=== PATIENT | female | born 1965 | race Caucasian/White ===

== ENCOUNTER 2019-12-09 00:44 | Outpatient (CLI) | payer OTHER, SELFPAY ==
[2019-12-09 18:41] LABS: SARS-CoV-2 RNA PCR Negative
== END 2019-12-09 00:45 | disposition home or self-care (01) ==
LOC: ANHCOVIDDT 00:44
PROVIDERS: PCP Family Medicine; Visit Provider Internal Medicine Gastroenterology
DX: Z01.812 Encounter for preprocedural laboratory examination (principal); Z11.59 Encounter for screening for other viral diseases
CPT/HCPCS: 87635; C9803; U0003

== ENCOUNTER 2019-12-11 05:40 | Day surgery (SDC) | payer OTHER, SELFPAY ==
[2019-12-05 15:22] VITALS: BMI 50.8
[2019-12-11 06:35] VITALS: BP 176/83; PULSE 76; RESP 18; TEMP 36.3; O2SAT 98; BMI 53.7
[2019-12-11] MEDS: LACTATED RINGERS 1,000 ML 150 ML IV CONT (06:53)
--- NOTE | 2019-12-11 07:19 | WPDANESEPPF ---
Anes - Initial Pre Proc Eval Procedure: Operation Date: 12/11/19 07:30 Proposed Procedures p Screening Colonoscopy - Brett Miranda MD Date/Time: 12/11/19 07:19 Surgeon: Brett Miranda MD Pre Op Diagnosis: neoplasm screening Patient Data Age: 53 Gender: F Height: 5 ft 6 in Weight: 151 kg Last Vital Signs Temp 97.3 F L 12/11/19 06:35 Pulse 76 12/11/19 06:35 Resp 18 12/11/19 06:35 BP 176/83 H 12/11/19 06:35 Pulse Ox 98 12/11/19 06:35 Allergies Allergy/AdvReac Type Severity Reaction Status Date / Time amoxicillin Allergy Unknown Skin Verified 12/11/19 06:31 Reaction Penicillins Allergy Unknown Skin Verified 12/11/19 06:31 Reaction AMOXICILLIN TRIHYDRATE Allergy Intermediate RASH Uncoded 12/11/19 06:31 POTASSIUM CLAVULANATE Allergy Intermediate RASH Uncoded 12/11/19 06:31 Home Medications Medication Instructions Recorded Confirmed Type levothyroxine 150 mcg tablet 150 mcg PO DAILY #90 tablet 05/27/19 12/11/19 Rx fluoxetine 20 mg capsule 20 mg PO DAILY #90 cap 06/17/19 12/11/19 Rx aspirin 81 mg tablet,delayed 81 mg PO DAILY 11/27/19 12/11/19 History release loratadine 10 mg tablet 20 mg PO DAILY tablet 11/27/19 12/11/19 History metoprolol succinate 50 mg 50 mg PO DAILY 11/27/19 12/11/19 History tablet,extended release 24 hr omeprazole 40 mg capsule,delayed 40 mg PO DAILY #30 cap 11/27/19 12/11/19 Rx release hydrochlorothiazide 25 mg tablet 25 mg PO DAILY #90 tablet 11/28/19 12/11/19 Rx naproxen 500 mg tablet 500 mg PO BID #180 tablet 11/28/19 12/11/19 Rx Patient hx anesthesia problems: none Family hx anesthesia problems: none PMFSH Past Medical History Medical History (Updated 12/11/19 @ 07:12 by Chet Zamarripa MD) Essential (primary) hypertension Hypothyroid Super obesity Social History Social History Smoking status: Former smoker Smoking end date: 05/29/98 Alcohol intake: current Anes - Eval Final PreProcedure Day of Procedure 12/11/19 07:19 Patient weight: super morbidly obese Heart: regular rate and rhythm Lungs: clear to auscultation Airway: Mallampati scale class II Neurological: alert and oriented Last oral intake: >/= 8 hours ASA classification: IV Emergent: no Anesthetic plan: proceed Anesthesia type and monitoring: general GIVS and standard monitoring Informed Consent: The patient's anesthetic plan and its attendant risks and benefits were discussed with the patient/family/POA. Questions were solicited and answers provided to the satisfaction of the patient/family/POA.
--- NOTE | 2019-12-11 07:24 | WPDGICN ---
Assessment and Plan Assessment and plan (1) Encounter for screening for colorectal malignant neoplasm: Code(s): Z12.11 - Encounter for screening for malignant neoplasm of colon; Z12.12 - Encounter for screening for malignant neoplasm of rectum Status: Acute Assessment and Plan: Screening colonoscopy advised. Patient is now 52. Has never had a screening exam. Further recommendations will be given after colonoscopy. (2) Rectal bleed: Code(s): K62.5 - Hemorrhage of anus and rectum Status: Acute Assessment and Plan: Rectal bleeding likely from hemorrhoids. Plan is to evaluate the time of colonoscopy. High-fiber diet advised. GI Consult Note Consult date/time: 12/11/19 07:24 HPI: Steffi Rodas is a 53 year old female seen in evaluation at the request of Dr Justin Hernandez.Patient presents for neoplasia screening. she has never had a screening colonoscopy. Family history is noncontributory. There is no reported history of colon or rectal disease. Patient reports a 6 week history of loose stools socially with fatigue. She attributes this to the recent changes of working home associated with viral epidemic. Patient has noticed intermittent bright red blood per rectum during this interval of time. She denies any weight loss. She denies any abdominal pain. Review of Systems Review of Systems: All systems reviewed & are unremarkable except as noted in HPI and below PMFSH Past Medical History Medical History Essential (primary) hypertension Hypothyroid Super obesity Family History Family History Mother Diabetes mellitus Family history of cardiovascular disease Hypertension Patient's mother is , Onset Age: 61 Cerebrovascular accident Father Family history of primary malignant neoplasm of liver Family history of arthritis Sibling Family history of schizophrenia Hypertension Grandparent Hypertension Family history of cardiovascular disease Social History Social History Smoking status: Former smoker Smoking end date: 05/29/98 Alcohol intake: current Meds Home Medications and Allergies Home Medications Medication Instructions Recorded Confirmed Type levothyroxine 150 mcg tablet 150 mcg PO DAILY #90 tablet 05/27/19 12/11/19 Rx fluoxetine 20 mg capsule 20 mg PO DAILY #90 cap 06/17/19 12/11/19 Rx aspirin 81 mg tablet,delayed 81 mg PO DAILY 11/27/19 12/11/19 History release loratadine 10 mg tablet 20 mg PO DAILY tablet 11/27/19 12/11/19 History metoprolol succinate 50 mg 50 mg PO DAILY 11/27/19 12/11/19 History tablet,extended release 24 hr omeprazole 40 mg capsule,delayed 40 mg PO DAILY #30 cap 11/27/19 12/11/19 Rx release hydrochlorothiazide 25 mg tablet 25 mg PO DAILY #90 tablet 11/28/19 12/11/19 Rx naproxen 500 mg tablet 500 mg PO BID #180 tablet 11/28/19 12/11/19 Rx Allergies Allergy/AdvReac Type Severity Reaction Status Date / Time amoxicillin Allergy Unknown Skin Verified 12/11/19 06:31 Reaction Penicillins Allergy Unknown Skin Verified 12/11/19 06:31 Reaction AMOXICILLIN TRIHYDRATE Allergy Intermediate RASH Uncoded 12/11/19 06:31 POTASSIUM CLAVULANATE Allergy Intermediate RASH Uncoded 12/11/19 06:31 Vital Signs Vital Signs - 24 hr 12/11/19 06:35 Temperature 97.3 F L Pulse Rate 76 Respiratory Rate 18 Blood Pressure 176/83 H Pulse Oximetry 98 Exam Narrative: Exam Narrative: Physical exam reveals patient to be alert. Vital signs are stable. HEENT exam unremarkable. Lungs are clear to auscultation and percussion. Heart is without murmur or extra sounds. Abdominal exam is somewhat obese. Bowel sounds are present soft nontender with no hepatosplenomegaly. Digital external rectal exam is normal.
[2019-12-11 07:47] VITALS: BP 148/85; PULSE 73; RESP 16; O2SAT 96
[2019-12-11 07:57] VITALS: BP 148/81; PULSE 66; RESP 16; O2SAT 96
[2019-12-11 08:03] VITALS: BP 169/88; PULSE 61; RESP 16; O2SAT 97
== END 2019-12-11 08:20 | disposition home or self-care (01) ==
PROVIDERS: PCP Family Medicine; Visit Provider Internal Medicine Gastroenterology
PROC: 0DJD8ZZ Inspection of Lower Intestinal Tract, Via Natural or Artificial Opening Endoscopic (ICD-10-PCS; CPT 45378; principal; 2019-12-11 07:30)
DX: Z12.11 Encounter for screening for malignant neoplasm of colon (principal); K57.30 Diverticulosis of large intestine without perforation or abscess without bleeding; K64.8 Other hemorrhoids; K62.5 Hemorrhage of anus and rectum; I10 Essential (primary) hypertension; E03.9 Hypothyroidism, unspecified; E66.01 Morbid (severe) obesity due to excess calories; Z68.43 Body mass index [BMI] 50.0-59.9, adult; Z79.82 Long term (current) use of aspirin
CPT/HCPCS: 45378; J2704; J7120

== ENCOUNTER 2020-09-14 08:02 | Outpatient (CLI) | payer OTHER, SELFPAY | END 2020-09-14 08:03 | disposition home or self-care (01) | LOC: ANHCOVIDVC 08:03 | PROVIDERS: PCP Family Medicine | DX: Z23 Encounter for immunization (principal) | CPT/HCPCS: 0001A; 91300 ==

== ENCOUNTER 2020-10-05 07:59 | Outpatient (CLI) | payer OTHER, SELFPAY | END 2020-10-05 08:00 | disposition home or self-care (01) | LOC: ANHCOVIDVC 08:00 | PROVIDERS: PCP Family Medicine | DX: Z23 Encounter for immunization (principal) | CPT/HCPCS: 0002A; 91300 ==

== ENCOUNTER 2021-01-23 10:36 | Outpatient (CLI) | payer OTHER, SELFPAY ==
--- NOTE | ~2021-01-23 | XR_ITS ---
XR knee LT 3V DATE: 01/23/2021 11:00 INDICATION: Left knee pain TECHNIQUE: [place], AP, lateral views COMPARISON: None FINDINGS: There is tricompartment osteoarthritis including prominent particular spurring of the knight lofemoral joint and to a minimal extent lower quadrant. There is severe narrowing of the medial jumana rtment joint space and mild particular spurring. No fracture or dislocation or joint effusion. No radiopaque intra-articular loose body or chondrocalc inosis. No periosteal reaction or bone destruction. IMPRESSION: Tricompartment osteoarthritis, most prominent at the medial and patellofemoral compartmen ts Reviewed, dictated and finalized at location A. IMPRESSION: Tricompartment osteoarthritis, most prominent at the medial and pat ellofemoral compartments
--- NOTE | ~2021-01-23 | MR_ITS ---
EXAMINATION: MR lumbar spine wo con EXAM DATE: 01/23/2021 11:48 INDICATION: M48.062 - Spinal stenosis, lumbar region with neurogenic claudication chronic lbp/left le g pain x yrs, no trauma, no ca. TECHNIQUE: Multi-sequential, multiplanar MR images of the lumbar spine were obtained without contrast . Sagittal T1, T2, T2 fat saturation images. Axial T2 weighted images. Comparison is made to prior examination from 10/03/2011. FINDINGS: There is 3 mm anterolisthesis L3 on L4. Mild to moderate disc disease L4-5. The conus medul aaron terminates at the T12-L1 level and has normal signal intensity and morphology. There are no angulo spicious marrow signal abnormalities. Paraspinal soft tissue is unremarkable. Level by level evaluation: T12-L1: Disc does not extend beyond the endplate margin. Facet arthropathy: Mild. Neural foraminal stenosis: No stenosis. Central canal stenosis: No stenosis. L1-L2: Disc does not extend beyond the endplate margin. Facet arthropathy: Mild. Neural foraminal stenosis: No stenosis. Central canal stenosis: No stenosis. L2-L3: There is a mild diffuse disc bulge. Facet arthropathy: Mild. Neural foraminal stenosis: No stenosis. Central canal stenosis: No stenosis. L3-L4: There is a mild to moderate diffuse disc bulge. Facet arthropathy: Moderate to severe . Ligamentum flavum enlargement. Neural foraminal stenosis: Mild to moderate bilateral. Central canal stenosis: Moderate. L4-L5: There is a mild to moderate diffuse disc bulge. Facet arthropathy: Moderate to severe . Ligamentum flavum enlargement. Neural foraminal stenosis: Moderate to severe bilateral. Central canal stenosis: Moderate. L5-S1: Disc does not extend beyond the endplate margin. Facet arthropathy: Mild. Neural foraminal stenosis: No stenosis. Central canal stenosis: No stenosis. There is been progression spondylosis compared to 2012. IMPRESSION: 1. L4-5 moderate to severe bilateral neural foraminal stenosis. 2. Advanced arthropathy L3-for L4-5. Reviewed, dictated and finalized at location B.
--- NOTE | ~2021-01-23 | XR_ITS ---
XR knee RT 3V DATE: 01/23/2021 11:00 INDICATION: Right knee pain TECHNIQUE: [employer], AP and lateral views COMPARISON: None FINDINGS: There is tricompartment osteoarthritis, most prominent at the medial and patellofemoral com partments, particularly prominent loss of medial compartment joint space height. No fracture or dislocation or joint effusion. No radiopaque intra-articular loose body or chondrocalc inosis. No periosteal reaction or bone destruction. IMPRESSION: Tricompartment osteoarthritis, particularly prominent at the medial and patellofemoral co mpartments Reviewed, dictated and finalized at location A. IMPRESSION: Tricompartment osteoarthritis, particularly prominent at the medial and patellofemoral compartments
== END 2021-01-23 10:37 ==
LOC: MICIMG 10:36
PROVIDERS: PCP Family Medicine; Visit Provider Family Medicine
DX: M25.561 Pain in right knee (principal); M25.562 Pain in left knee; M48.062 Spinal stenosis, lumbar region with neurogenic claudication
CPT/HCPCS: 72148; 73562

== ENCOUNTER → 2021-12-13 08:30 | Outpatient (CLI) | payer OTHER, SELFPAY ==
--- NOTE | ~2021-12-13 | MMUS_ITS ---
EXAMINATION: MM diagnostic salo BI w jonathan, US breast RT limited HISTORY: Right breast pain TECHNIQUE: Additional 3-D tomosynthesis images of the breasts were performed and synthetic 2-D images were generated. CAD analysis was submitted and interpreted. High resolution Limited right breast ult rasound was performed. COMPARISON: 01/19/2017 BREAST PARENCHYMAL COMPOSITION: The breasts are heterogenously dense, which may obscure small masses. FINDINGS: MAMMOGRAPHIC FINDINGS: There are bilateral breast masses which have decreased in size compared with prior studies. There are no new masses, calcifications or areas of architectural distortion in either breast to suggest malig zina. ULTRASOUND: Limited right breast ultrasound: There are multiple cysts of the right breast. At 10:00, 9 cm from th e nipple there is an oval hypoechoic mass with some enhanced through transmission measuring 9 mm maxi mum dimension, likely a complicated cyst. IMPRESSION: 1. Probable benign right breast mass at 10:00, 9 cm from the nipple. 2. Recommend 6 month follow-up limited right breast ultrasound BI-RADS category 3, probably benign findings. Reviewed, dictated and finalized at location A. IMPRESSION: 1. Probable benign right breast mass at 10:00, 9 cm from the nipple. 2. Recommend 6 month follow-up limited right breast ultrasound BI-RADS category 3, probably benign findings.
== END ==
PROVIDERS: PCP Family Medicine; Visit Provider Family Medicine
DX: N64.4 Mastodynia (principal)
CPT/HCPCS: 76642; 77062; 77066; G0279

== ENCOUNTER 2022-09-08 19:53 | Emergency (ER) | payer OTHER, SELFPAY ==
--- NOTE | ~2022-09-08 | XR_ITS ---
Supine and upright views of the abdomen Clinical history: Distal left ureteral stone Findings: Bowel gas pattern is nonspecific. No evidence for obstruction or free air. A 4 mm stone in the left pelvis is consistent with distal left ureteral stone. Osseous structures are intact. Impression: 4 mm distal left ureteral stone. Reviewed, dictated and finalized at [facility]. Impression: 4 mm distal left ureteral stone.
--- NOTE | ~2022-09-08 | CT_ITS ---
Non-contrast CT scan of the Abdomen and Pelvis Clinical indication: Left flank pain Technique: 2.5 mm axial scans were obtained through the abdomen and pelvis without intravenous or or al contrast. Dose reduction technique was used on this scan by utilizing automated exposure control a nd iterative reconstruction technique. The dose-length product (DLP) was 1481.83 mGy-cm. Findings: Images through the lung bases reveal no abnormalities. There is a 5 mm stone in the distal left ureter (axial image 145), with mild left hydroureteronephros is to this level. Additional small nonobstructing left renal stones are present. No right renal stone or right ureteral stone. No right hydronephrosis. There is probable diffuse fatty infiltration of liver. Cholecystectomy clips are present. The spleen, pancreas, and adrenals appear normal. There are atherosclerotic calcifications of the aorta. There is no evidence of bowel obstruction. Images through the pelvis were performed. There is no evidence of ascites or lymphadenopathy. Urinary bladder unremarkable. No pelvic mass seen. Impression: 5 mm distal left ureteral stone with mild left hydroureteronephrosis to this level. Additional small nonobstructing left renal stone. Diffuse fatty infiltration of liver. Reviewed, dictated and finalized at location . Impression: 5 mm distal left ureteral stone with mild left hydroureteronephrosis to this le bertin. Additional small nonobstructing left renal stone. Diffuse fatty infiltration of liver.
[2022-09-08 20:24] VITALS: BP 186/95; PULSE 70; RESP 18; TEMP 36.8; O2SAT 97
[2022-09-08 20:55] LABS: Basophils Absolute Auto 0.1 K/mm3 (0.0-0.1); Basophils Percent Auto 0.8 % (0.2-1.2); Eosinophils Absolute Auto 0.2 K/mm3 (0-0.3); Eosinophils Percent Auto 1.9 % (0-4.4); Hematocrit 37.5 % (37.0-47.0); Hemoglobin 12.5 g/dL (12.0-15.0); Immature Granulocyte Absolute 0.03 K/mm3 (0.00-0.031); Immature Granulocyte Percent A 0.3 % (0-0.5); Lymphocytes Absolute Auto 1.46 K/mm3 (0.9-3.2); Lymphocytes Percent Auto 16.6 % (18.3-44.2); Mean Corpuscular HGB Conc 33.3 g/dl (32-36); Mean Corpuscular Hemoglobin 28.7 pg (26-34); Mean Platelet Volume 10.8 fl (7.4-10.4); Monocytes Absolute Auto 0.8 K/mm3 (0.1-0.6); Monocytes Percent Auto 8.9 % (2.6-8.5); Neutrophils Absolute Auto 6.3 K/mm3 (1.3-6.7); Neutrophils Percent Auto 71.5 % (45.5-73.1); Platelet Count Result 316 k/mm3 (150-375); Red Blood Count 4.36 M/mm3 (4.2-5.4); Red Cell Distribution Width 13.1 % (11.5-14.5); White Blood Count 8.8 K/mm3 (4.5-10.0)
[2022-09-08 21:02] LABS: Appearance Urine Cloudy (Clear); Bacteria Urine 3+ /hpf; Bilirubin Urine Negative (Negative); Blood Urine Negative (Negative); Color Urine Yellow (Yellow); Glucose Urine UA Negative (Negative); Ketones Urine Negative (Negative); Leukocyte Esterase Ur Trace LEU/UL (Negative); Nitrate Urine Negative (Negative); Non Pathogenic Casts 0-2; Protein Urine Negative (Negative); RBC Urine 0-2 /hpf (0-2); Squamous Epithelial Cell Urine Moderate /hpf (Few); Urobilinogen Urine 0.2 mg/dL (<2.0); pH Urine 5.5 (5.0-9.0)
[2022-09-08 21:08] LABS: Alanine Aminotransferase 24 U/L (6-35); Albumin Level 4.5 g/dL (3.5-5.1); Alkaline Phosphatase 106 U/L (38-126); Anion Gap 10 mmol/L (8-16); Aspartate Amino Transferase 26 U/L (14-36); Bilirubin,Total 1.1 mg/dL (0.2-1.3); Blood Urea Nitrogen 20 mg/dL (7-17); Calcium 9.6 mg/dL (8.4-10.2); Carbon Dioxide 26 mmol/L (22-30); Chloride 100 mmol/L (98-107); Estimated CRCL calculation 85 ml/min; Estimated Glomerular Filt Rate 58; Glucose 118 mg/dL (65-110); Potassium 3.8 mmol/L (3.4-5.0); Sodium 136 mmol/L (137-145)
[2022-09-08 21:14] LABS: Add Urine Microscopic? YES
--- NOTE | 2022-09-09 00:38 | ED.FEMALEGU ---
HPI - Female Genitourinary General Chief complaint: Urogenital-Female Stated complaint: ?KIDNEY STONE Time Seen by Provider: 09/08/22 23:43 Source: patient Mode of arrival: ambulatory Limitations: no limitations History of Present Illness HPI Narrative: Patient is a 56-year-old female who presents to the ED with report of left flank pain. Patient reported having an episode of left flank pain on Monday, which resolved on its own. Today, the pain has been more severe, intermittent. Occasionally radiates around to her left lower abdomen. Patient reports a previous history of kidney stones around 5 years ago, which felt similar. At that time, she had an infected stone that required ureteral stent placement. Patient does not currently follow with urologist. She does report nausea, but denies vomiting. Denies dysuria, hematuria, urinary frequency, fevers. Patient took Tylenol around 3 PM today. Related Data Home Medications Medication Instructions Recorded Confirmed aspirin 81 mg tablet,delayed 81 mg PO DAILY 11/27/19 05/02/22 release (Adult Aspirin Regimen) loratadine 10 mg tablet (Claritin) 20 mg PO DAILY 11/27/19 05/02/22 Allergies Allergy/AdvReac Type Severity Reaction Status Date / Time amoxicillin Allergy Unknown Skin Verified 05/02/22 13:19 Reaction Penicillins Allergy Unknown Skin Verified 05/02/22 13:19 Reaction AMOXICILLIN TRIHYDRATE Allergy Intermediate RASH Uncoded 05/02/22 13:19 POTASSIUM CLAVULANATE Allergy Intermediate RASH Uncoded 05/02/22 13:19 Review of Systems Review of Systems: CONSTITUTIONAL: Denies fever, chills, or sweats. CARDIOVASCULAR: Denies chest pain. RESPIRATORY: Denies dyspnea. GASTROINTESTINAL: See HPI. GENITOURINARY: Denies frequency, urgency, dysuria or hematuria. SKIN: Denies rash or itching. MUSCULOSKELETAL: See HPI. NEUROLOGIC: Denies headache, numbness, or weakness. All systems reviewed & are unremarkable except as noted in HPI and below PMFSH Past Medical History Medical History Essential (primary) hypertension Hypothyroid Knee pain, bilateral Super obesity Surgical History Surgical History History of ureter stent Family History Family History Mother Diabetes mellitus Family history of cardiovascular disease Hypertension Patient's mother is , Onset Age: 61 Cerebrovascular accident Father Family history of primary malignant neoplasm of liver Family history of arthritis Sibling Family history of schizophrenia Hypertension Grandparent Hypertension Family history of cardiovascular disease Social History Social History Smoking status: Never smoker Smoking end date: 05/29/98 Alcohol intake: current Lack of Transportation: YES Lack of Food: Never True Current Housing: I Have Housing Concerned About Future Housing: No Difficulty Paying Gas/Electric Bills: No Difficulty Paying for Meds: No Currently Unemployed: No Education: Bachelor's Degree Difficulty w/ Childcare or Family Care: No Exam Narrative: GENERAL: Well appearing, morbidly obese, BMI 52.3. Non-toxic, in no acute distress. HEAD: Normocephalic, atraumatic. NECK: Supple. No adenopathy, no masses. RESPIRATORY: Airway patent, respirations nonlabored. Clear to auscultation bilaterally, no rales, rhonchi, wheezing. CARDIOVASCULAR: Regular rate and rhythm without murmurs, rubs, or gallops. Radial pulses 2+ and equal bilaterally. ABDOMINAL: Soft, mild tenderness in left lower abdomen, suprapubic region. Nondistended, no hepatosplenomegaly. Normoactive BS. MUSCULOSKELETAL: Moves all extremities. Strength/ROM intact without gross deformities. Tenderness to palpation in left flank/lumbosacral region. SKIN: Warm, dry, normal
[2022-09-09] MEDS: ONDANSETRON INJ 4 MG/2 ML VIAL IV PUSH (01:08)
[2022-09-09] MEDS: MORPHINE SULFATE (*CRX) 4 MG/ML INJ IV PUSH ×2 (01:08→04:12)
[2022-09-09] MEDS: SODIUM CHLORIDE 0.9% IV 1,000 ML 999 ML IV CONT (01:08)
[2022-09-09 02:30] LABS: Pregnancy On Board Control Positive; Urine Pregnancy Test Negative
[2022-09-09 04:11] VITALS: BP 128/63; PULSE 60; RESP 18; TEMP 36.6; O2SAT 99
[2022-09-09 04:35] VITALS: BP 136/89; PULSE 89; RESP 18; TEMP 36.6; O2SAT 99
== END 2022-09-09 04:35 | disposition home or self-care (01) ==
PROVIDERS: Emergency Medicine; Emergency Provider Physician Assistant; PCP Family Medicine
DX: N13.2 Hydronephrosis with renal and ureteral calculous obstruction (principal); I10 Essential (primary) hypertension; E03.9 Hypothyroidism, unspecified; E66.01 Morbid (severe) obesity due to excess calories; Z68.43 Body mass index [BMI] 50.0-59.9, adult; Z87.891 Personal history of nicotine dependence; R82.998 Other abnormal findings in urine; Z79.82 Long term (current) use of aspirin
CPT/HCPCS: 36415; 74018; 74176; 80053; 81001; 81025; 85025; 87086; 87088; 96365; 96366; 96375; 96376; 99284; J0131; J0696; J2270; J2405; J7030

== ENCOUNTER 2022-09-26 13:00 | Outpatient (CLI) | payer OTHER, SELFPAY ==
--- NOTE | ~2022-09-26 | XR_ITS ---
EXAM: XR abdomen/kub 1V DATE: 09/26/2022 13:24 HISTORY: Left ureteral stone . COMPARISON: 09/09/2022; CT abdomen and pelvis, 09/26/2022. FINDINGS: Cholecystectomy clips. Normal bowel gas pattern. No organomegaly. No abnormal abdominal ca lcification. Known distal left UVJ stone not visualized. Degenerative lumbar disc disease. Bilateral hip osteoarthritis. IMPRESSION: Known distal left UVJ stone not visualized, likely obscured by summation artifact. Reviewed, dictated and finalized at location K. IMPRESSION: Known distal left UVJ stone not visualized, likely obscured by summ ation artifact.
--- NOTE | ~2022-09-26 | CT_ITS ---
Non-contrast CT scan of the Abdomen and Pelvis Clinical indication: Left ureteral stone Technique: 2.5 mm axial scans were obtained through the abdomen and pelvis without intravenous or or al contrast. Dose reduction technique was used on this scan by utilizing automated exposure control a nd iterative reconstruction technique. The dose-length product (DLP) was 1135.74 mGy-cm. COMPARISON: 09/09/2022 Findings: Images through the lung bases reveal no abnormalities. 5 mm left ureteral stone has migrated distally to the left UVJ. Left hydronephrosis is improved from prior exam. No right renal or right ureteral stone. No right hydronephrosis. There is diffuse fatty infiltration of liver. Cholecystectomy clips are present. The spleen, pancreas , and adrenals appear normal. There are atherosclerotic calcifications of the aorta. There is no evidence of bowel obstruction. Images through the pelvis were performed. There is no evidence of ascites or lymphadenopathy. Urinary bladder otherwise unremarkable. No adnexal mass evident. No ascites. Impression: 5 mm left ureteral stone has migrated distally to the left UVJ. Left hydronephrosis is significantly improved/decreased from prior exam. Diffuse fatty infiltration of the liver. Reviewed, dictated and finalized at [facility]. Impression: 5 mm left ureteral stone has migrated distally to the left UVJ. Left hydronephr osis is significantly improved/decreased from prior exam. Diffuse fatty infiltration of the liver.
== END 2022-09-26 13:01 ==
PROVIDERS: PCP Family Medicine; Visit Provider Urology
DX: N20.1 Calculus of ureter (principal); K76.0 Fatty (change of) liver, not elsewhere classified
CPT/HCPCS: 74018; 74176

== ENCOUNTER 2024-04-09 08:57 | Outpatient (CLI) | payer BC, SELFPAY ==
--- NOTE | ~2024-04-09 | MMUS_ITS ---
EXAMINATION: MM diagnostic salo BI w jonathan, US breast RT limited HISTORY: 2:00 position right breast lump TECHNIQUE: 3-D tomosynthesis images of the breasts were performed and synthetic 2-D images were gener ated. CAD analysis was submitted and interpreted. High resolution limited right breast ultrasound was performed. COMPARISON: 12/13/2021, 01/04/2017 BREAST PARENCHYMAL COMPOSITION:Not Dense. There are scattered areas of fibroglandular density. FINDINGS: MAMMOGRAPHIC FINDINGS: Parenchymal pattern of the breasts is stable from prior exam. No suspicious mass lesion or distortion seen. No suspicious microcalcification. ULTRASOUND: At the 3:00 position right breast, 10 cm from the nipple, there is a 5 x 4 x 5 mm hypoechoic circumsc ribed mass, wider than tall. No definite posterior shadowing. No other sonographic abnormality seen i n the region scanned. IMPRESSION: 5 mm hypoechoic probable benign mass at the 3:00 position right breast, 10 cm from the nipple. Six-m onth follow-up ultrasound recommended to reassess. No mammographic evidence of malignancy. BI-RADS category 3, probably benign findings. Reviewed, dictated and finalized at location M. [employer] IMPRESSION: 5 mm hypoechoic probable benign mass at the 3:00 position right breast, 10 cm from the nipple. Six-month follow-up ultrasound recommended to reassess. No mammographic evidence of malignancy. BI-RADS category 3, probably benign findings.
== END 2024-04-09 08:58 | disposition home or self-care (01) ==
PROVIDERS: PCP Family Medicine; Visit Provider Family Medicine
DX: N63.12 Unspecified lump in the right breast, upper inner quadrant (principal); R92.8 Other abnormal and inconclusive findings on diagnostic imaging of breast; Z80.3 Family history of malignant neoplasm of breast
CPT/HCPCS: 76642; 77062; 77066; G0279